=== PATIENT | male | born 1940 ===

== ENCOUNTER 2021-09-22 21:31 | Inpatient (IN) ==
[2021-09-22 22:03] LABS: Basophils % 0.2 % (0.0-0.8); Hematocrit 33.4 VOL% (42.0-52.0); Immature Granulocytes % 0.7 %; Immature Granulocytes Absolute 0.06 #; Lymphocytes # 1.7 10*3/uL (1.4-4.0); Mean Corpuscular HGB Conc 29.9 GM/DL (32-36); Mean Corpuscular Volume 79.1 FL (87-102); Mean Platelet Volume 8.1 FL (9.6-12.0); Monocytes % 10.8 % (1.7-12.7); Neutrophils % 68.3 % (38.7-73.9); Platelet Count 359 T/CUMM (130-400); Red Blood Count 4.22 MC/CUMM (3.8-5.5); Red Cell Distribution Width 16.7 % (9.3-17.3); White Blood Count 8.3 T/CUMM (4-12)
[2021-09-22 22:06] LABS: Amorphous Crystals,Urine Occasional /HPF (Few); Bilirubin,Urine Negative (Negative); Blood, Urine Negative (Negative); Glucose,Urine (UA) Negative (Negative); Ketones,Urine Negative (Negative); Nitrite,Urine Negative (Negative); Protein,Urine 100 MG/DL; Squamous Epithelial Cell,Urine Occasional /HPF (0-10); Urine Appearance CLOUDY (Clear); Urine Color Amber (Yellow); Urine Specific Gravity 1.011 (1.001-1.035); Urine Urobilinogen < 2.0 EU/DL (0.2-1.0)
[2021-09-22] MEDS ORDERED: cefTRIAXone 1,000 MG in SODIUM CHLORIDE 0.9% 100 ML IV STA (22:09)
[2021-09-22] MEDS ORDERED: cefTRIAXone 1,000 MG VIAL ONE (22:10)
[2021-09-22 22:23] LABS: Albumin 3.2 G/DL (3.4-5.0); Bilirubin,Total 0.4 MG/DL (0.20-1.00); Calcium 9.3 MG/DL (8.5-10.1); Osmolality,Calculated 279.7 MOS/KG (273-304); Potassium 4.5 MMOL/L (3.5-5.1); Total Protein 8.1 G/DL (6.4-8.2)
[2021-09-22] MEDS ORDERED: DEXTROSE 50% 25 GM/50 ML VIAL IV PRN (23:07)
[2021-09-22] MEDS ORDERED: GLUCAGON 1 MG VIAL IM PRN (23:07)
[2021-09-22] MEDS ORDERED: ONDANSETRON 4 MG/2 ML VIAL IV PRN (23:42)
[2021-09-22] MEDS ORDERED: ACETAMINOPHEN 325 MG TABLET PO PRN (23:42)
[2021-09-23] MEDS ORDERED: traZODone 50 MG TABLET PO PRN (00:18)
[2021-09-23 06:33] LABS: Basophils % 0.3 % (0.0-0.8); Hematocrit 33.6 VOL% (42.0-52.0); Immature Granulocytes % 0.9 %; Immature Granulocytes Absolute 0.08 #; Lymphocytes # 1.8 10*3/uL (1.4-4.0); Lymphocytes % 20.2 % (21.2-54.2); Mean Corpuscular HGB Conc 29.8 GM/DL (32-36); Mean Corpuscular Volume 80.8 FL (87-102); Mean Platelet Volume 9.4 FL (9.6-12.0); Monocytes % 9.8 % (1.7-12.7); Neutrophils % 68.8 % (38.7-73.9); Platelet Count 281 T/CUMM (130-400); Red Blood Count 4.16 MC/CUMM (3.8-5.5); Red Cell Distribution Width 16.7 % (9.3-17.3); White Blood Count 8.8 T/CUMM (4-12)
[2021-09-23] MEDS: INSULIN REGULAR 100 UNIT/ML SUBCUT SCH ×4 (07:20→20:47)
[2021-09-23 07:42] LABS: Calcium 8.7 MG/DL (8.5-10.1); Osmolality,Calculated 279.7 MOS/KG (273-304); Potassium 5.1 MMOL/L (3.5-5.1); Risk Ratio 2.65; Thyroid Stimulating Hormone 0.933 uIU/ml (0.358-3.74); VLDL Cholesterol 15.2 MG/DL
[2021-09-23] MEDS ORDERED: INFLUENZA VIRUS VACCINE 0.5 ML SYRINGE IM ONE (09:00)
[2021-09-23] MEDS ORDERED: DILTIAZEM INJ 100 MG in SODIUM CHLORIDE 0.9% 100 ML IV SCH (09:00)
[2021-09-23] MEDS: SODIUM CHLORIDE 0.9% 1,000 ML IV SCH ×3 (09:25→20:33)
[2021-09-23] MEDS: PANTOPRAZOLE 40 MG TABLET PO SCH (09:28)
[2021-09-23] MEDS: METOPROLOL TARTRATE 25 MG TABLET PO SCH ×2 (09:29→20:34)
[2021-09-23] MEDS: APIXABAN 5 MG TABLET PO SCH ×2 (09:31→20:34)
[2021-09-23] MEDS: TAMSULOSIN 0.4 MG CAPSULE PO SCH (09:32)
[2021-09-23] MEDS: levETIRAcetam 250 MG TABLET PO SCH ×2 (09:33→20:34)
[2021-09-23] MEDS: amLODIPine 5 MG TABLET PO SCH (09:34)
[2021-09-23] MEDS: NICOTINE 14 MG/24 HR PATCH TRANSDERM SCH (09:39)
[2021-09-23] MEDS: cefTRIAXone 1,000 MG in SODIUM CHLORIDE 0.9% 100 ML IV SCH (20:33)
[2021-09-23] MEDS: DONEPEZIL 5 MG TABLET PO SCH (20:33)
[2021-09-24] MEDS: SODIUM CHLORIDE 0.9% 1,000 ML IV SCH (07:24)
[2021-09-24 08:14] LABS: Basophils % 0.3 % (0.0-0.8); Eosinophils # 0.1 10*3/uL (0.0-0.87); Eosinophils % 0.9 % (0.00-10.9); Hematocrit 26.8 VOL% (42.0-52.0); Immature Granulocytes % 0.6 %; Immature Granulocytes Absolute 0.04 #; Lymphocytes # 1.5 10*3/uL (1.4-4.0); Lymphocytes % 21.5 % (21.2-54.2); Mean Corpuscular HGB Conc 29.9 GM/DL (32-36); Mean Corpuscular Volume 79.1 FL (87-102); Mean Platelet Volume 8.2 FL (9.6-12.0); Monocytes % 11.3 % (1.7-12.7); Neutrophils % 65.4 % (38.7-73.9); Platelet Count 284 T/CUMM (130-400); Red Blood Count 3.39 MC/CUMM (3.8-5.5); Red Cell Distribution Width 16.3 % (9.3-17.3); White Blood Count 6.8 T/CUMM (4-12)
[2021-09-24 08:39] LABS: Alanine Aminotransferase 27 U/L (16-61); Albumin 2.4 G/DL (3.4-5.0); Alkaline Phosphatase 56 U/L (45-117); Aspartate Amino Transferase 23 U/L (0-37); Bilirubin,Total < 0.39 MG/DL (0.20-1.00); Blood Urea Nitrogen 30 MG/DL (7-18); Calcium 8.3 MG/DL (8.5-10.1); Carbon Dioxide 19 MMOL/L (21-32); Estimated Glom Filtration Rate 38 ML/MIN; Glucose 89 MG/DL (74-106); Osmolality,Calculated 277.8 MOS/KG (273-304); Sodium 137 MMOL/L (136-145); Total Protein 6.7 G/DL (6.4-8.2)
[2021-09-24] MEDS: INSULIN REGULAR 100 UNIT/ML SUBCUT SCH ×4 (09:30→21:58)
[2021-09-24] MEDS: APIXABAN 5 MG TABLET PO SCH ×2 (10:03→21:57)
[2021-09-24] MEDS: TAMSULOSIN 0.4 MG CAPSULE PO SCH (10:03)
[2021-09-24] MEDS: PANTOPRAZOLE 40 MG TABLET PO SCH (10:04)
[2021-09-24] MEDS: levETIRAcetam 250 MG TABLET PO SCH ×2 (10:05→21:58)
[2021-09-24] MEDS: amLODIPine 5 MG TABLET PO SCH (10:05)
[2021-09-24] MEDS: METOPROLOL TARTRATE 25 MG TABLET PO SCH ×2 (10:06→21:57)
[2021-09-24] MEDS: NICOTINE 14 MG/24 HR PATCH TRANSDERM SCH (10:07)
[2021-09-24] MEDS: DONEPEZIL 5 MG TABLET PO SCH (21:58)
[2021-09-24] MEDS: cefTRIAXone 1,000 MG in SODIUM CHLORIDE 0.9% 100 ML IV SCH (21:58)
[2021-09-25] MEDS: SODIUM CHLORIDE 0.9% 1,000 ML IV SCH ×3 (02:23→19:08)
[2021-09-25 05:32] LABS: Basophils % 0.2 % (0.0-0.8); Eosinophils # 0.1 10*3/uL (0.0-0.87); Eosinophils % 1.3 % (0.00-10.9); Hematocrit 27.4 VOL% (42.0-52.0); Hemoglobin 8.3 GM/DL (14.0-18.0); Immature Granulocytes % 0.3 %; Immature Granulocytes Absolute 0.02 #; Lymphocytes # 1.7 10*3/uL (1.4-4.0); Lymphocytes % 28.9 % (21.2-54.2); Mean Corpuscular HGB Conc 30.3 GM/DL (32-36); Mean Corpuscular Volume 79.2 FL (87-102); Mean Platelet Volume 8.2 FL (9.6-12.0); Monocytes % 10.9 % (1.7-12.7); Neutrophils % 58.4 % (38.7-73.9); Platelet Count 294 T/CUMM (130-400); Red Blood Count 3.46 MC/CUMM (3.8-5.5); Red Cell Distribution Width 16.3 % (9.3-17.3)
[2021-09-25 06:01] LABS: Eosinophils 1 % (0-10); Hypochromasia 1+; Lymphocytes 26 % (20-55); Microcytosis 1+; Platelet Estimate Adequate; Segmented Neutrophils 57 % (50-85); Total Cells Counted 100
[2021-09-25 06:02] LABS: Calcium 8.6 MG/DL (8.5-10.1); Osmolality,Calculated 272.1 MOS/KG (273-304); Potassium 4.1 MMOL/L (3.5-5.1)
[2021-09-25] MEDS: INSULIN REGULAR 100 UNIT/ML SUBCUT SCH ×3 (08:09→16:35)
[2021-09-25] MEDS: levETIRAcetam 250 MG TABLET PO SCH (08:37)
[2021-09-25] MEDS: amLODIPine 5 MG TABLET PO SCH (08:37)
[2021-09-25] MEDS: METOPROLOL TARTRATE 25 MG TABLET PO SCH (08:37)
[2021-09-25] MEDS: PANTOPRAZOLE 40 MG TABLET PO SCH (08:37)
[2021-09-25] MEDS: APIXABAN 5 MG TABLET PO SCH (08:37)
[2021-09-25] MEDS: TAMSULOSIN 0.4 MG CAPSULE PO SCH (08:37)
[2021-09-25] MEDS: NICOTINE 14 MG/24 HR PATCH TRANSDERM SCH (08:38)
[2021-09-25 16:15] VITALS: BP 130/74
[2021-09-25] MEDS ORDERED: INFLUENZA VIRUS VACCINE 0.5 ML SYRINGE IM ONE (19:24)
[2021-09-27] MEDS ORDERED: ERGOCALCIFEROL 50,000 UNIT CAPSULE PO SCH (09:00)
== END 2021-09-25 19:40 | disposition home health service (06) | DRG 698 ==
LOC: EDUNIT# → EDBD → N.EDINP 21:31 → N.ED 21:31 → N.2W 09-23 00:33 → SUATTDRO 09-23 08:33
PROVIDERS: ADMIT Internal Medicine; ATTEND Internal Medicine

== ENCOUNTER 2021-10-26 15:22 | Inpatient (IN) ==
[2021-10-26 17:30] LABS: Bacteria,Urine Many /HPF (Few); Bilirubin,Urine Negative (Negative); Blood, Urine Small mg/dL (Negative); Glucose,Urine (UA) Negative (Negative); Ketones,Urine Negative (Negative); Nitrite,Urine Negative (Negative); Protein,Urine 100 MG/DL; Urine Appearance CLOUDY (Clear); Urine Color Amber (Yellow); Urine Specific Gravity 1.009 (1.001-1.035); Urine Urobilinogen < 2.0 EU/DL (0.2-1.0)
[2021-10-26] MEDS ORDERED: cefTRIAXone 1,000 MG in SODIUM CHLORIDE 0.9% 100 ML IV STA (17:36)
[2021-10-26 18:52] LABS: Albumin 2.9 G/DL (3.4-5.0); Bilirubin,Total 0.4 MG/DL (0.20-1.00); Calcium 8.8 MG/DL (8.5-10.1); Osmolality,Calculated 277.7 MOS/KG (273-304); Potassium 4.4 MMOL/L (3.5-5.1); Total Protein 7.9 G/DL (6.4-8.2)
[2021-10-26 18:55] LABS: Basophils % 0.3 % (0.0-0.8); Eosinophils % 0.3 % (0.00-10.9); Hematocrit 41.9 VOL% (42.0-52.0); Hemoglobin 12.8 GM/DL (14.0-18.0); Immature Granulocytes % 0.7 %; Immature Granulocytes Absolute 0.04 #; Lymphocytes # 1.3 10*3/uL (1.4-4.0); Lymphocytes % 20.7 % (21.2-54.2); Mean Corpuscular HGB Conc 30.5 GM/DL (32-36); Mean Corpuscular Volume 78.5 FL (87-102); Monocytes % 7.6 % (1.7-12.7); Neutrophils % 70.4 % (38.7-73.9); Platelet Count 306 T/CUMM (130-400); Red Blood Count 5.34 MC/CUMM (3.8-5.5); White Blood Count 6.1 T/CUMM (4-12)
[2021-10-26] MEDS ORDERED: SODIUM CHLORIDE 0.9% 1,000 ML IV STA (20:33)
[2021-10-26] MEDS ORDERED: GLUCAGON 1 MG VIAL IM PRN (21:40)
[2021-10-26] MEDS ORDERED: ACETAMINOPHEN 325 MG TABLET PO PRN (21:40)
[2021-10-26] MEDS ORDERED: DEXTROSE 50% 25 GM/50 ML SYRINGE IV PRN (21:40)
[2021-10-26] MEDS: LACTATED RINGERS 1,000 ML IV SCH (22:05)
[2021-10-27 13:50] LABS: Basophils % 0.1 % (0.0-0.8); Eosinophils % 0.3 % (0.00-10.9); Hematocrit 39.6 VOL% (42.0-52.0); Hemoglobin 12.1 GM/DL (14.0-18.0); Immature Granulocytes % 0.7 %; Immature Granulocytes Absolute 0.05 #; Lymphocytes # 1.5 10*3/uL (1.4-4.0); Mean Corpuscular HGB Conc 30.6 GM/DL (32-36); Mean Corpuscular Volume 78.6 FL (87-102); Monocytes % 8.9 % (1.7-12.7); Platelet Count 334 T/CUMM (130-400); Red Blood Count 5.04 MC/CUMM (3.8-5.5); Red Cell Distribution Width 18.6 % (9.3-17.3)
[2021-10-27] MEDS: LACTATED RINGERS 1,000 ML IV SCH (15:25)
[2021-10-27 16:43] LABS: Albumin 2.7 G/DL (3.4-5.0); Bilirubin,Total 0.9 MG/DL (0.20-1.00); Calcium 8.8 MG/DL (8.5-10.1); Osmolality,Calculated 282.3 MOS/KG (273-304); Potassium 4.3 MMOL/L (3.5-5.1); Total Protein 7.5 G/DL (6.4-8.2)
[2021-10-27] MEDS ORDERED: cefTRIAXone 1,000 MG in SODIUM CHLORIDE 0.9% 100 ML IV SCH (17:00)
[2021-10-27 19:43] LABS: INR 1.1; PT Patient Result 12.6 SECS (10.5-12.0)
[2021-10-27] MEDS: levETIRAcetam 250 MG TABLET PO SCH (20:44)
[2021-10-27] MEDS ORDERED: SODIUM BICARB INJ 150 MEQ in STERILE WATER INJ 850 ML IV SCH (21:00)
[2021-10-27] MEDS: MEROPENEM 500 MG in SODIUM CHLORIDE 0.9% 100 ML IV SCH (21:13)
[2021-10-28] MEDS: MEROPENEM 500 MG in SODIUM CHLORIDE 0.9% 100 ML IV SCH ×2 (04:16→13:48)
[2021-10-28 06:01] LABS: Basophils % 0.1 % (0.0-0.8); Eosinophils # 0.1 10*3/uL (0.0-0.87); Eosinophils % 0.7 % (0.00-10.9); Hematocrit 31.3 VOL% (42.0-52.0); Hemoglobin 9.4 GM/DL (14.0-18.0); Immature Granulocytes % 0.7 %; Immature Granulocytes Absolute 0.06 #; Lymphocytes # 1.4 10*3/uL (1.4-4.0); Lymphocytes % 17.6 % (21.2-54.2); Mean Corpuscular Volume 77.9 FL (87-102); Mean Platelet Volume 8.2 FL (9.6-12.0); Monocytes % 10.4 % (1.7-12.7); Neutrophils % 70.5 % (38.7-73.9); Platelet Count 332 T/CUMM (130-400); Red Blood Count 4.02 MC/CUMM (3.8-5.5); Red Cell Distribution Width 17.8 % (9.3-17.3); White Blood Count 8.2 T/CUMM (4-12)
[2021-10-28 06:37] LABS: Albumin 2.4 G/DL (3.4-5.0); Bilirubin,Total 0.7 MG/DL (0.20-1.00); Calcium 8.8 MG/DL (8.5-10.1); Osmolality,Calculated 275.7 MOS/KG (273-304); Total Protein 6.9 G/DL (6.4-8.2)
[2021-10-28] MEDS: PANTOPRAZOLE 40 MG TABLET PO SCH (08:58)
[2021-10-28] MEDS: levETIRAcetam 250 MG TABLET PO SCH ×2 (08:58→23:27)
[2021-10-28] MEDS: LACTATED RINGERS 1,000 ML IV SCH (16:48)
[2021-10-28] MEDS: SODIUM CHLORIDE 0.9% 1,000 ML IV SCH (17:01)
[2021-10-28] MEDS: cefTRIAXone 1,000 MG in SODIUM CHLORIDE 0.9% 100 ML IV SCH (17:07)
[2021-10-28 17:37] LABS: Basophils % 0.1 % (0.0-0.8); Eosinophils # 0.1 10*3/uL (0.0-0.87); Eosinophils % 1.2 % (0.00-10.9); Hematocrit 29.6 VOL% (42.0-52.0); Hemoglobin 9.2 GM/DL (14.0-18.0); Immature Granulocytes % 0.5 %; Immature Granulocytes Absolute 0.04 #; Lymphocytes # 1.8 10*3/uL (1.4-4.0); Lymphocytes % 23.3 % (21.2-54.2); Mean Corpuscular HGB Conc 31.1 GM/DL (32-36); Mean Corpuscular Volume 77.5 FL (87-102); Mean Platelet Volume 8.2 FL (9.6-12.0); Monocytes % 9.6 % (1.7-12.7); Neutrophils % 65.3 % (38.7-73.9); Platelet Count 330 T/CUMM (130-400); Red Blood Count 3.82 MC/CUMM (3.8-5.5); Red Cell Distribution Width 17.4 % (9.3-17.3); White Blood Count 7.6 T/CUMM (4-12)
[2021-10-28 18:21] LABS: Folate 11.47 NG/ML (5.38-24.0); Vitamin B12 387 PG/ML (211-911)
[2021-10-28 20:41] LABS: Sedimentation Rate-Westergren 111 MM/HR (0-20)
[2021-10-28] MEDS: DONEPEZIL 5 MG TABLET PO SCH (23:27)
[2021-10-28] MEDS: APIXABAN 5 MG TABLET PO SCH (23:27)
[2021-10-29 05:09] LABS: Basophils % 0.2 % (0.0-0.8); Eosinophils # 0.1 10*3/uL (0.0-0.87); Eosinophils % 1.8 % (0.00-10.9); Hematocrit 29.2 VOL% (42.0-52.0); Hemoglobin 8.8 GM/DL (14.0-18.0); Immature Granulocytes % 0.6 %; Immature Granulocytes Absolute 0.04 #; Lymphocytes # 1.8 10*3/uL (1.4-4.0); Lymphocytes % 26.4 % (21.2-54.2); Mean Corpuscular HGB Conc 30.1 GM/DL (32-36); Mean Corpuscular Volume 78.1 FL (87-102); Monocytes % 11.6 % (1.7-12.7); Neutrophils % 59.4 % (38.7-73.9); Platelet Count 305 T/CUMM (130-400); Red Blood Count 3.74 MC/CUMM (3.8-5.5); Red Cell Distribution Width 17.3 % (9.3-17.3); White Blood Count 6.7 T/CUMM (4-12)
[2021-10-29 05:36] LABS: Calcium 8.6 MG/DL (8.5-10.1); Osmolality,Calculated 274.7 MOS/KG (273-304); Potassium 4.1 MMOL/L (3.5-5.1)
[2021-10-29] MEDS: SODIUM CHLORIDE 0.9% 1,000 ML IV SCH ×2 (05:53→19:25)
[2021-10-29] MEDS: levETIRAcetam 250 MG TABLET PO SCH ×2 (09:21→22:02)
[2021-10-29] MEDS: TAMSULOSIN 0.4 MG CAPSULE PO SCH (09:21)
[2021-10-29] MEDS: PANTOPRAZOLE 40 MG TABLET PO SCH (09:21)
[2021-10-29] MEDS: APIXABAN 5 MG TABLET PO SCH ×2 (09:21→22:02)
[2021-10-29] MEDS: amLODIPine 5 MG TABLET PO SCH (09:21)
[2021-10-29] MEDS: cefTRIAXone 1,000 MG in SODIUM CHLORIDE 0.9% 100 ML IV SCH (10:01)
[2021-10-29 10:11] LABS: Hemoglobin A1 (Alkaline) 98.5 % (96.5-98.5); Hemoglobin A2 (Alkaline) 1.5 % (1.5-3.5)
[2021-10-29] MEDS: DONEPEZIL 5 MG TABLET PO SCH (22:02)
[2021-10-30] MEDS: levETIRAcetam 250 MG TABLET PO SCH (08:20)
[2021-10-30] MEDS: APIXABAN 5 MG TABLET PO SCH (08:20)
[2021-10-30] MEDS: TAMSULOSIN 0.4 MG CAPSULE PO SCH (08:20)
[2021-10-30] MEDS: PANTOPRAZOLE 40 MG TABLET PO SCH (08:20)
[2021-10-30] MEDS: amLODIPine 5 MG TABLET PO SCH (08:21)
[2021-10-30] MEDS: cefTRIAXone 1,000 MG in SODIUM CHLORIDE 0.9% 100 ML IV SCH (08:21)
[2021-10-30] MEDS: SODIUM CHLORIDE 0.9% 1,000 ML IV SCH (08:36)
[2021-10-30] MEDS ORDERED: FERROUS SULFATE 325 MG TABLET PO SCH (09:00)
[2021-10-30 11:55] VITALS: BP 139/78
[2021-10-30 12:36] LABS: Basophils % 0.4 % (0.0-0.8); Eosinophils # 0.1 10*3/uL (0.0-0.87); Eosinophils % 2.3 % (0.00-10.9); Hematocrit 29.3 VOL% (42.0-52.0); Hemoglobin 8.9 GM/DL (14.0-18.0); Immature Granulocytes % 0.7 %; Immature Granulocytes Absolute 0.04 #; Lymphocytes # 1.8 10*3/uL (1.4-4.0); Lymphocytes % 31.7 % (21.2-54.2); Mean Corpuscular HGB Conc 30.4 GM/DL (32-36); Mean Corpuscular Volume 77.5 FL (87-102); Mean Platelet Volume 7.9 FL (9.6-12.0); Neutrophils % 55.9 % (38.7-73.9); Platelet Count 313 T/CUMM (130-400); Red Blood Count 3.78 MC/CUMM (3.8-5.5); Red Cell Distribution Width 17.2 % (9.3-17.3); White Blood Count 5.6 T/CUMM (4-12)
[2021-10-30 12:59] LABS: Calcium 8.4 MG/DL (8.5-10.1); Potassium 3.8 MMOL/L (3.5-5.1)
[2021-11-01] MEDS ORDERED: ERGOCALCIFEROL 50,000 UNIT CAPSULE PO SCH (09:00)
== END 2021-10-30 15:45 | disposition home health service (06) | DRG 690 ==
LOC: EDBD → EDUNIT# → N.ED 15:22 → N.EDINP 21:41 → N.5E 10-27 17:08
PROVIDERS: ADMIT Internal Medicine; ATTEND Internal Medicine